=== PATIENT | female | born 1940 | race Native Hawaiian/Other Pacific Islander ===

== ENCOUNTER 2016-11-12 13:58 | Emergency (ER) | payer OTHER ==
[~2016-11-12] VITALS: Ht 162.6 cm; Wt 62.6 kg
[~2016-11-12 13:58] MED LIST: ACTOS15 MG OR; ALPR0.5T24 PO; BENA20TA2 PO; GRALISE600 MG OR; LEVO0.0723 PO; LEVO0.1T6 PO; LORTAB1 TAB PO; MECLIZINE25 MG OR; METF500T PO; MOBIC7.5 M1 PO; NEXIUM40 M1 PO; NEXIUM40 MG PO; OMEP40CA PO; ONDA4TAB3 PO; RANI150T78 PO; SIMV40TA57; TIZA4TAB5 PO; TRAM50TA PO
[2016-11-12 16:33] LABS: PLATELET COUNT 364 K/uL (152-353)
[2016-11-12 16:41] LABS: POTASSIUM 4.7 mmol/L (3.6-5.2); SODIUM 139 mmol/L (136-145)
[2016-11-12 17:30] VITALS: BP 98/52; TEMP 97.9
== END 2016-11-12 17:30 | disposition home or self-care (01) ==
LOC: ED 13:58
DX: I10 Essential (primary) hypertension (principal)
CPT/HCPCS: 80053; 84484; 85027; 93005; 99284

== ENCOUNTER 2017-01-19 14:43 | Outpatient (CLI) | payer OTHER ==
[2017-01-19 15:08] LABS: PLATELET COUNT 345 K/uL (152-353)
[2017-01-19 15:27] LABS: POTASSIUM 5.7 mmol/L (3.6-5.2); SODIUM 139 mmol/L (136-145)
== END 2017-01-19 19:39 | disposition home or self-care (01) ==
LOC: LAB 14:43
PROVIDERS: Nurse Practitioner Family
DX: I10 Essential (primary) hypertension (principal); E11.9 Type 2 diabetes mellitus without complications; F41.8 Other specified anxiety disorders; Z79.899 Other long term (current) drug therapy; E55.9 Vitamin D deficiency, unspecified; Z51.81 Encounter for therapeutic drug level monitoring
CPT/HCPCS: 80053; 80061; 82306; 82607; 83036; 84436; 84443; 85027

== ENCOUNTER 2017-04-28 13:39 | Outpatient (CLI) | payer OTHER ==
[2017-04-28 14:03] LABS: PLATELET COUNT 375 K/uL (152-353)
== END 2017-04-28 19:47 | disposition home or self-care (01) ==
LOC: LAB 13:39
PROVIDERS: Nurse Practitioner Family
DX: F41.8 Other specified anxiety disorders (principal); E11.9 Type 2 diabetes mellitus without complications; E53.8 Deficiency of other specified B group vitamins
CPT/HCPCS: 82607; 84436; 84443; 85027

== ENCOUNTER 2017-07-15 13:59 | Outpatient (CLI) | payer OTHER | END 2017-07-15 22:41 | disposition home or self-care (01) | LOC: RAD 13:59 | DX: R06.02 Shortness of breath (principal) ==

== ENCOUNTER 2017-11-01 15:24 | Outpatient (CLI) | payer OTHER ==
[2017-11-01 15:59] LABS: PLATELET COUNT 282 K/uL (152-353)
[2017-11-01 16:32] LABS: POTASSIUM 4.8 mmol/L (3.6-5.2)
== END 2017-11-01 22:52 | disposition home or self-care (01) ==
LOC: LAB 15:24
PROVIDERS: Nurse Practitioner Family
DX: F41.8 Other specified anxiety disorders (principal); E11.9 Type 2 diabetes mellitus without complications; I10 Essential (primary) hypertension
CPT/HCPCS: 80053; 80061; 83036; 84436; 84443; 85027

== ENCOUNTER 2018-01-19 12:55 | Outpatient (CLI) | payer OTHER ==
[2018-02-13] MEDS ORDERED: ALPR0.5T24 PO (15:49)
[2018-02-13] MEDS ORDERED: XANAX XR0.5 MG PO (15:49)
[2018-02-13] MEDS ORDERED: LEVO0.08 PO (15:51)
[2018-02-13] MEDS ORDERED: TIZA4TAB5 PO (15:53)
[2018-02-13] MEDS ORDERED: GABA300C2 PO (15:55)
[2018-02-13] MEDS ORDERED: MECLIZINE 2525 MG PO (15:58)
== END 2018-01-19 23:32 | disposition home or self-care (01) ==
LOC: RAD 12:55
DX: M85.89 Other specified disorders of bone density and structure, multiple sites (principal)

== ENCOUNTER 2018-08-15 11:50 | Emergency (ER) | payer OTHER ==
[~2018-08-15] VITALS: Ht 162.6 cm; Wt 59.0 kg
[~2018-08-15 11:50] MED LIST changes: +GABA300C2 PO; +LEVO0.08 PO; +MECLIZINE 2525 MG PO; +XANAX XR0.5 MG PO
[2018-08-15 18:00] VITALS: BP 155/79; TEMP 97.9
== END 2018-08-15 18:00 | disposition short-term general hospital (02) ==
LOC: ED 11:50
DX: M54.5 Low back pain (principal); S32.018A Other fracture of first lumbar vertebra, initial encounter for closed fracture; W18.39XA Other fall on same level, initial encounter; Y92.098 Other place in other non-institutional residence as the place of occurrence of the external cause
CPT/HCPCS: 99284

== ENCOUNTER 2018-10-26 14:13 | Outpatient (CLI) | payer OTHER ==
[2018-10-26] MEDS ORDERED: DOCU100C10 PO (14:36)
[2018-10-26] MEDS ORDERED: DULO30CA PO (14:37)
== END 2018-10-26 14:20 | disposition short-term general hospital (02) ==
LOC: AMB 14:13
DX: I95.89 Other hypotension (principal); R53.1 Weakness
CPT/HCPCS: A0425; A0427

== ENCOUNTER 2018-10-26 14:24 | Emergency (ER) | payer OTHER ==
[~2018-10-26] VITALS: Ht 162.6 cm; Wt 59.0 kg
[2018-10-26 14:24] VITALS: TEMP 97.6
[2018-10-26] MEDS ORDERED: DOCU100C10 PO (14:36)
[2018-10-26] MEDS ORDERED: DULO30CA PO (14:37)
[2018-10-26 14:57] LABS: PLATELET COUNT 318 K/uL (152-353)
[2018-10-26 15:04] LABS: SODIUM 140 mmol/L (136-145)
[2018-10-26 16:55] VITALS: BP 137/573
== END 2018-10-26 17:00 | disposition home or self-care (01) ==
LOC: ED 14:24
PROVIDERS: Emergency Medicine
DX: I95.89 Other hypotension (principal); R55 Syncope and collapse
CPT/HCPCS: 36415; 80053; 81000; 82550; 82553; 84484; 85027; 87086; 87088; 93005; 96360; 99284

== ENCOUNTER 2019-01-06 11:27 | Outpatient (CLI) | payer OTHER ==
[~2019-01-06 11:27] MED LIST changes: +DOCU100C10 PO; +DULO30CA PO
== END 2019-01-06 19:09 | disposition home or self-care (01) ==
LOC: LABW 11:27
DX: E87.5 Hyperkalemia (principal)
CPT/HCPCS: 36415; 84132

== ENCOUNTER 2019-05-24 15:28 | Outpatient (CLI) | payer OTHER ==
[2019-05-24 16:14] LABS: PLATELET COUNT 382 K/uL (152-353)
[2019-05-24 16:35] LABS: POTASSIUM 5.2 mmol/L (3.6-5.2)
== END 2019-05-24 22:02 | disposition home or self-care (01) ==
LOC: LAB 15:28
PROVIDERS: Nurse Practitioner Family
DX: E11.9 Type 2 diabetes mellitus without complications (principal); F41.9 Anxiety disorder, unspecified; M25.50 Pain in unspecified joint; I10 Essential (primary) hypertension; Z00.00 Encounter for general adult medical examination without abnormal findings; Z79.899 Other long term (current) drug therapy; E53.8 Deficiency of other specified B group vitamins
CPT/HCPCS: 80053; 80061; 82306; 82607; 83036; 84439; 84443; 85027

== ENCOUNTER 2020-02-08 14:28 | Outpatient (CLI) | payer OTHER | END 2020-02-08 19:34 | disposition home or self-care (01) | LOC: LAB 14:28 | DX: R53.83 Other fatigue (principal); R09.81 Nasal congestion | CPT/HCPCS: 87635; G2023; U00003 ==

== ENCOUNTER 2020-07-15 12:32 | Outpatient (CLI) | payer OTHER | END 2020-07-15 21:10 | disposition home or self-care (01) | LOC: LAB 12:32 | PROVIDERS: ATTEND Nurse Practitioner Family | DX: Z20.828 Contact with and (suspected) exposure to other viral communicable diseases (principal); R09.81 Nasal congestion; R09.89 Other specified symptoms and signs involving the circulatory and respiratory systems; R53.83 Other fatigue; J34.89 Other specified disorders of nose and nasal sinuses; R06.02 Shortness of breath; R05 Cough | CPT/HCPCS: 87635; G2023; U0003 ==

== ENCOUNTER 2022-01-20 13:22 | Outpatient (CLI) | payer OTHER | END 2022-01-20 18:53 | disposition home or self-care (01) | LOC: RAD 13:22 | PROVIDERS: ATTEND Nurse Practitioner Family | DX: M25.511 Pain in right shoulder (principal) ==

== ENCOUNTER 2022-03-10 14:14 | Emergency (ER) | payer OTHER ==
[~2022-03-10] VITALS: Ht 162.6 cm; Wt 59.0 kg
[2022-03-10 14:17] VITALS: TEMP 97.7
[2022-03-10 14:33] LABS: PLATELET COUNT 325 K/uL (152-353)
[2022-03-10 15:40] VITALS: BP 137/42
== END 2022-03-10 15:40 | disposition home or self-care (01) ==
LOC: ED 14:14
PROVIDERS: Emergency Medicine
DX: R55 Syncope and collapse (principal); I95.89 Other hypotension
CPT/HCPCS: 80053; 80307; 80320; 81002; 83880; 84484; 85027; 93005; 96360; 99284

== ENCOUNTER 2022-09-04 11:58 | Outpatient (CLI) | payer OTHER | END 2022-09-04 18:56 | disposition home or self-care (01) | LOC: RAD 11:58 | PROVIDERS: ATTEND Nurse Practitioner Family | DX: M25.561 Pain in right knee (principal); M35.3 Polymyalgia rheumatica; M47.892 Other spondylosis, cervical region; M47.896 Other spondylosis, lumbar region; Z79.899 Other long term (current) drug therapy ==

== ENCOUNTER 2023-03-02 12:25 | Outpatient (CLI) | payer OTHER | END 2023-03-02 19:19 | disposition home or self-care (01) | LOC: MRI 12:25 | PROVIDERS: ATTEND Orthopaedic Surgery | DX: M54.59 Other low back pain (principal); M54.16 Radiculopathy, lumbar region; M48.062 Spinal stenosis, lumbar region with neurogenic claudication; M51.35 Other intervertebral disc degeneration, thoracolumbar region; M51.36 Other intervertebral disc degeneration, lumbar region; M51.37 Other intervertebral disc degeneration, lumbosacral region; R53.1 Weakness ==